=== PATIENT | female | born 1970 | race African-American/Black ===

== ENCOUNTER 2016-07-13 17:09 | Emergency (ER) | payer OTHER ==
--- NOTE | ~2016-07-13 | US84 ---
[id number] [address] [address] [id number] MR#: [id number] Acc #: [id number] NAME: SHAMIR GOLDSTEIN : 1970 SEX: F STUDY DATE/TIME: 07/13/2016 18:37 UNIT: SED ROOM: STUDY DESCRIPTION: US LE Veins Complete Justin Stdy Attending Physician: Ranjan De Paz M.D. Ordering Physician: Lul Godinez M.D. Primary Care Physician: Uriel Cho M.D. MEDICAL IMAGING REPORT This report is preliminary unless electronic signature is present. EXAM Bilateral lower extremity Doppler venous ultrasound, 07/13/2016 HISTORY Bilateral lower extremity pain for 4 days with burning sensation and weakness. COMPARISON None TECHNIQUE Venous ultrasound examination of both lower extremities was performed using grayscale, spectral Doppler and color flow Doppler imaging. FINDINGS The examination is negative. There is no evidence of deep venous thrombus from the groin to the lower calf bilaterally. Visualized greater saphenous veins are also patent. IMPRESSION Negative examination. No evidence of bilateral lower extremity DVT. Dictated by... Janneth Maxwell M.D. THIS IS AN ELECTRONICALLY VERIFIED REPORT Janneth Maxwell M.D. at 07/14/2016 2:09 PM Murtaza TD: 07/14/2016 09:10 JOB #: [id number] MEDICAL IMAGING REPORT
[2016-07-13 16:54] LABS: BASOPHIL# 0.1 X10e3 (0-0.3); BASOPHIL% 0.8 % (0-2.5); EOSINOPHIL# 0.5 X10e3 (0-0.7); EOSINOPHIL% 5.5 % (0.0-7.0); HEMATOCRIT 39.6 % (35.0-45.0); HEMOGLOBIN 13.4 gm/dL (12.0-16.0); LYMPHOCYTE# 2.3 X10e3 (1.0-3.5); MEAN CELL VOLUME 94.7 FL (83-96); MEAN CORPUSCULAR HEMOGLOBIN 31.9 PG (28-34); MEAN CORPUSCULAR HGB CONC 33.7 g/dL (30-36); MONOCYTE% 10.5 % (3.0-12.0); NEUTROPHIL# 5.4 X10e3 (1.5-7.1); NEUTROPHIL% 58.2 % (40-75); PLATELET COUNT 330 X10e3 (140-420); RED BLOOD COUNT 4.18 X10e (3.90-5.30); RED CELL DISTRIBUTION WIDTH 13.2 % (11.0-15.5); WHITE BLOOD COUNT 9.3 X10e3 (4.0-10.5)
[2016-07-13 16:56] LABS: DIFF IND NO
[~2016-07-13 17:09] MED LIST: ASMANEX HFA13 G1; FLONASE 0.05% N16 G1; LO LOESTRIN FE1 EACH; MACROBID100 MG PO; MULTI VITAMIN1 EACH; PEPCID AC20 M2 PO; PHENERGAN25 MG PO; PREDNISONE1 MG; SINGULAIR; TRINESSA LO TA1 EACH; ZYRTEC5 M1
[2016-07-13 17:14] LABS: PROTHROMBIN TIME (PATIENT) 11.2 SECONDS (9.5-12.4)
[2016-07-13 17:21] LABS: BLOOD UREA NITROGEN 13 mg/dL (9-23); BUN/CREATININE RATIO 21.66; CARBON DIOXIDE 28 mmol/L (22-31); CHLORIDE 102 mmol/L (100-111); CREATININE SERUM 0.6 mg/dL (0.6-1.4); GLOM FILT RATE Estimated ABOVE60 mL/min (>60); GLUCOSE FASTING 97 mg/dL (70-110); POTASSIUM 4.3 mmol/L (3.5-5.1); SODIUM 137 mmol/L (135-145)
== END 2016-07-13 20:32 | disposition home or self-care (01) ==
LOC: SED 17:09
PROVIDERS: Emergency Medicine
DX: M79.661 Pain in right lower leg (principal); M79.662 Pain in left lower leg; M79.652 Pain in left thigh; M79.651 Pain in right thigh; J45.909 Unspecified asthma, uncomplicated; Z88.5 Allergy status to narcotic agent; Z88.6 Allergy status to analgesic agent; Z79.899 Other long term (current) drug therapy
CPT/HCPCS: 36415; 80048; 85025; 85610; 93970; 96372; 99284; J1885

== ENCOUNTER 2016-12-20 20:02 | Emergency (ER) | payer OTHER ==
[~2016-12-20] VITALS: Ht 160 cm; Wt 68.0 kg
== END 2016-12-20 21:07 | disposition home or self-care (01) ==
LOC: SED 20:02
DX: T63.461A Toxic effect of venom of wasps, accidental (unintentional), initial encounter (principal); L50.0 Allergic urticaria; Z88.5 Allergy status to narcotic agent; Z88.6 Allergy status to analgesic agent; Z79.899 Other long term (current) drug therapy
CPT/HCPCS: 99282